=== PATIENT | female | born 1995 | race Caucasian/White ===

== ENCOUNTER → 2023-11-18 14:04 | Outpatient (REF) | payer OTHER, SELFPAY | LOC: PAVMRI 14:04 | PROVIDERS: ATTENDING PHYSICIAN Student in an Organized Health Care Education/Training Program; FAMILY PHYSICIAN Student in an Organized Health Care Education/Training Program | DX: G89.0 Central pain syndrome (principal); M54.6 Pain in thoracic spine; M54.16 Radiculopathy, lumbar region; M54.12 Radiculopathy, cervical region | CPT/HCPCS: 72141; 72146; 72148 ==

== ENCOUNTER → 2023-12-05 09:08 | Outpatient (REF) | payer OTHER, SELFPAY | LOC: EEG 09:08 | PROVIDERS: ATTENDING PHYSICIAN Nurse Practitioner Adult Health; FAMILY PHYSICIAN Student in an Organized Health Care Education/Training Program | DX: G40.309 Generalized idiopathic epilepsy and epileptic syndromes, not intractable, without status epilepticus (principal); R56.9 Unspecified convulsions | CPT/HCPCS: 95708 ==

== ENCOUNTER → 2024-02-05 13:21 | Outpatient (REF) | payer OTHER, SELFPAY | LOC: RAD 13:21 | PROVIDERS: ATTENDING PHYSICIAN Student in an Organized Health Care Education/Training Program | DX: N83.8 Other noninflammatory disorders of ovary, fallopian tube and broad ligament (principal) | CPT/HCPCS: 76856 ==